=== PATIENT | female | born 1980 | race African-American/Black ===

== ENCOUNTER 2017-07-27 07:46 | Emergency (ER) | payer MEDICAID ==
[~2017-07-27] VITALS: Ht 154.9 cm; Wt 61.2 kg
[2017-07-27] MEDS ORDERED: Sodium Chloride 500ML 500 ML IV ONE (07:53)
[2017-07-27] MEDS ORDERED: Morphine Sulfate 4mg/ml Inj IVP ONE (08:00)
[2017-07-27] MEDS ORDERED: Ketorolac 30mg Inj IV ONE (08:00)
[2017-07-27 08:36] LABS: BASOPHILS % (AUTO) 1.1 % (0.0-2.0); EOSINOPHILS % (AUTO) 7.7 % (0.0-3.0); HEMATOCRIT 29.8 % (37.0-47.0); HEMOGLOBIN 9.2 G/DL (12.0-16.0); LYMPHOCYTES % (AUTO) 30.4 % (20.0-45.0); MEAN CORPUSCULAR VOLUME 74 FL (80-99); MONOCYTES % (AUTO) 4.5 % (1.0-10.0); NEUTROPHILS % (AUTO) 56.3 % (45.0-75.0); PLATELET COUNT 273 K/UL (150-450); RED BLOOD COUNT 4.05 M/UL (4.20-5.40); RED CELL DISTRIBUTION WIDTH 15.2 % (11.6-14.8); WHITE BLOOD COUNT 7.4 K/UL (4.8-10.8)
[2017-07-27 08:43] LABS: ANION GAP 7 mmol/L (5-15); BLOOD UREA NITROGEN 11 mg/dL (7-18); CARBON DIOXIDE 27 MMOL/L (21-32); CHLORIDE 107 MMOL/L (98-107); CREATININE 0.9 MG/DL (0.55-1.30); POTASSIUM 4.3 MMOL/L (3.5-5.1); SODIUM 141 MMOL/L (136-145)
[2017-07-27 08:58] LABS: ALANINE AMINOTRANSFERASE 14 U/L (12-78); ALBUMIN 3.6 G/DL (3.4-5.0); ALBUMIN/GLOBULIN RATIO 0.9 (1.0-2.7); ALKALINE PHOSPHATASE 85 U/L (46-116); ASPARTATE AMINO TRANSFERASE 14 U/L (15-37); BILIRUBIN,TOTAL 0.2 MG/DL (0.2-1.0); CKMB < 0.5 NG/ML (0.0-3.6); CREATINE KINASE 89 U/L (26-308)
[2017-07-27 09:02] LABS: APPEARANCE,URINE SLIGHTLY CLOUDY; BILIRUBIN, URINE NEGATIVE (NEGATIVE); COLOR,URINE PALE YELLOW; GLUCOSE, URINE (UA) NEGATIVE (NEGATIVE); KETONES,URINE NEGATIVE (NEGATIVE); LEUKOCYTE ESTERASE ,URINE NEGATIVE (NEGATIVE); NITRITE,URINE NEGATIVE (NEGATIVE); PH,URINE 6 (4.5-8.0); PROTEIN,URINE NEGATIVE (NEGATIVE); UROBILINOGEN,URINE NORMAL MG/DL (0.0-1.0)
--- NOTE | 2017-07-27 09:29 | Emergency Room Report ---
History of Present Illness General Chief Complaint: Back Pain-No Injury Source: Patient Present Illness HPI Patient presents with complaints of pain to the right rhomboid area medial to the scapula and just lateral to the spine on the right side patient reports waking up to the pain this morning there is a pleuritic component to it however also significant musculoskeletal component denies any headache denies any neck pain she felt that the pain was also coming around to the mid chest area Denies any vomiting or diarrhea denies any focal weakness Allergies: Coded Allergies: No Known Allergies (Unverified , 07/27/17) Patient History Past Medical History: see triage record Pertinent Family History: none Last Menstrual Period: july 06, 2017 Now: No Reviewed Nursing Documentation: PMH: Agreed; PSxH: Agreed Nursing Documentation-PMH Past Medical History: No History, Except For Hx Asthma: Yes Review of Systems All Other Systems: negative except mentioned in HPI Physical Exam Vital Signs Date Time Temp Pulse Resp B/P (MAP) Pulse Ox O2 Delivery O2 Flow Rate FiO2 07/27/17 07:36 98.1 58 16 128/79 100 Room Air 98.1 Sp02 EP Interpretation: reviewed, normal General Appearance: well appearing, no apparent distress Head: normocephalic, atraumatic Eyes: bilateral eye PERRL, bilateral eye EOMI ENT: hearing grossly normal, normal pharynx, TMs + canals normal, uvula midline Neck: full range of motion, supple, no meningismus, no bony tend Respiratory: lungs clear, normal breath sounds, no rhonchi, no respiratory distress, no retraction, no accessory muscle use Cardiovascular #1: normal peripheral pulses, regular rate, rhythm, no edema, no gallop, no JVD, no murmur, other - Patient has significant discomfort to the right mid rhomboid region no obvious midline step-off Gastrointestinal: normal bowel sounds, non tender, soft, no mass, no organomegaly, non-distended, no guarding, no hernia, no pulsatile mass, no rebound Genitourinary: no CVA tenderness Musculoskeletal: other - As above with tenderness in the right rhomboid region , patient also has pain when she moves and rotates her shoulder causing pain in that area Neurologic: oriented x3, responsive, mold maker helper III-XII nml as tested, motor strength/ tone normal, sensory intact Psychiatric: mood/affect normal Skin: normal color, no rash, warm/dry, palpation normal Lymphatic: normal inspection, no adenopathy Medical Decision Making Diagnostic Impression: Primary Impression: Back pain Additional Impressions: Pleurisy Drug abuse ER Course Multiple differentials considered Musculoskeletal cardiac pulmonary pathology Given the patient's pleuritic component initial d-dimer was obtained and this was elevated and therefore CT imaging was followed No signs of any obvious pulmonary embolism Patient's drug screen also shows multiple drug ingestion including cocaine On reevaluation patient continued to do well at this time is stable for close outpatient follow-up ,, Labs Test 07/27/17 08:11 07/27/17 08:49 White Blood Count 7.4 K/UL (4.8-10.8) Red Blood Count 4.05 M/UL (4.20-5.40) Hemoglobin 9.2 G/DL (12.0-16.0) Hematocrit 29.8 % (37.0-47.0) Mean Corpuscular Volume 74 FL (80-99) Mean Corpuscular Hemoglobin 22.7 PG (27.0-31.0) Mean Corpuscular Hemoglobin Concent 30.8 G/DL (32.0-36.0) Red Cell Distribution Width 15.2 % (11.6-14.8) Platelet Count 273 K/UL (150-450) Mean Platelet Volume 9.6 FL (6.5-10.1) Neutrophils (%) (Auto) 56.3 % (45.0-75.0) Lymphocytes (%) (Auto) 30.4 % (20.0-45.0) Monocytes (%) (Auto) 4.5 % (1.0-10.0) Eosinophils (%) (Auto) 7.7 % (0.0-3.0) Basophils (%) (Auto) 1.1 % (0.0-2.0) D-Dimer 0.60 mg/L FEU (0.00-0.49) Sodium Level 141 MMOL/L (136-145) Potassium Level 4.3 MMOL/L (3.5-5.1) Chloride Level 107 MMOL/L (98-107) Carbon Dioxide Level 27 MMOL/L (21-32) Anion Gap 7 mmol/L (5-15) Blood Urea Nitrogen 11 mg/dL (7-18) Creatinine 0.9 MG/DL (0.55-1.30) Estimat Glomerular Filtration Rate > 60 mL/min (>60) Glucose Level 104 MG/DL (74-106) Calcium Level 9.0 MG/DL (8.5-10.1) Total Bilirubin 0.2 MG/DL (0.2-1.0) Aspartate Amino Transf (AST/SGOT) 14 U/L (15-37) Alanine Aminotransferase (ALT/SGPT) 14 U/L (12-78) Alkaline Phosphatase 85 U/L (46-116) Total Creatine Kinase 89 U/L (26-308) Creatine Kinase MB < 0.5 NG/ML (0.0-3.6) Creatine Kinase MB Relative Index Troponin I 0.000 ng/mL (0.000-0.056) Total Protein 7.7 G/DL (6.4-8.2) Albumin 3.6 G/DL (3.4-5.0) Globulin 4.1 g/dL Albumin/Globulin Ratio 0.9 (1.0-2.7) Lipase 167 U/L (73-393) Urine Color Pale yellow Urine Appearance Slightly cloudy Urine pH 6 (4.5-8.0) Urine Specific [place] 1.015 (1.005-1.035) Urine Protein Negative (NEGATIVE) Urine Glucose (UA) Negative (NEGATIVE) Urine Ketones Negative (NEGATIVE) Urine Occult Blood Negative (NEGATIVE) Urine Nitrite Negative (NEGATIVE) Urine Bilirubin Negative (NEGATIVE) Urine Urobilinogen Normal MG/DL (0.0-1.0) Urine Leukocyte Esterase Negative (NEGATIVE) Urine RBC 0-2 /HPF (0 - 2) Urine WBC 2-4 /HPF (0 - 2) Urine Squamous Epithelial Cells Many /LPF (NONE/OCC) Urine Amorphous Sediment Few /LPF (NONE) Urine Bacteria Few /HPF (NONE) Urine HCG, Qualitative Negative (NEGATIVE) Urine Opiates Screen Positive (NEGATIVE) Urine Barbiturates Screen Negative (NEGATIVE) Phencyclidine (PCP) Screen Negative (NEGATIVE) Urine Amphetamines Screen Negative (NEGATIVE) Urine Benzodiazepines Screen Negative (NEGATIVE) Urine Cocaine Screen Positive (NEGATIVE) Urine Marijuana (THC) Screen Positive (NEGATIVE) EKG Diagnostic Results Rate: normal Rhythm: NSR ST Segments: no acute changes Rhythm Strip Diag. Results EP Interpretation: yes Rate: 77 Rhythm: NSR, no PVC's, no ectopy Chest X-Ray Diagnostic Results Chest X-Ray Diagnostic Results : Chest X-Ray Ordered: Yes # of Views/Limited/Complete: 1 View Indication: Chest Pain EP Interpretation: Yes Interpretation: no consolidation, no effusion, no pneumothorax, no acute cardiopulmonary disease Impression: No acute disease Electronically Signed by: Jesus Alberto Rivero DO CT/MRI/US Diagnostic Results CT/MRI/US Diagnostic Results : Impression CT chestFindings: There is image degradation due to respiratory motion artifact. No definite intraluminal filling defects or other findings to suggest acute pulmonary embolus are demonstrated. Normal caliber pulmonary arteries. No evidence of right ventricular dilatation. The heart is mildly enlarged. No evidence of thoracic aortic aneurysm or dissection. The lungs demonstrate some groundglass opacity, particularly in the posterior upper lobes. This may to some extent the due to respiratory motion artifact may also represent mild pulmonary edema Linear opacities at both lung bases representing either scarring or atelectasis. No dense consolidation, masses, nodules, or effusions are demonstrated. No mediastinal or hilar mass or adenopathy. No pericardial effusion. No axillary or chest wall mass or adenopathy. Visualized portions of the thyroid are unremarkable. Esophagus is unremarkable. The included upper abdominal anatomy is unremarkable. Impression: No definite evidence of acute pulmonary embolus. Note, however, that motion artifact at the lung bases makes peripheral pulmonary and was difficult to confidently excluded. Mild cardiomegaly Scattered areas of groundglass opacity may reflect areas of mild pulmonary edema Bilateral basilar atelectasis versus scarring Last Vital Signs Date Time Temp Pulse Resp B/P (MAP) Pulse Ox O2 Delivery O2 Flow Rate FiO2 07/27/17 07:36 98.1 58 16 128/79 100 Room Air 98.1 Status: improved Disposition: HOME, SELF-CARE Condition: Improved Scripts Ibuprofen* (MOTRIN*) 600 Mg Tablet 600 MG ORAL Q8H PRN for For Pain, #30 TAB 0 Refills Prov: Jesus Alberto Rivero DO 07/27/17 [facility],REFERRING (PCP) Additional Instructions: Patient is provided with the discharge instructions notified to follow up with primary doctor in the next 2-3 days otherwise return to the er with any worsening symptoms. Please note that this report is being documented using [employer] technology. This can lead to erroneous entry secondary to incorrect interpretation by the dictating instrument. Jesus Alberto Rivero DO Jul 27, 2017 09:29
--- NOTE | 2017-07-27 10:18 | Diagnostic Imaging Report ---
Indication: Chest pain Technique: One view of the chest Comparison: none Findings: Lungs and pleural spaces are clear. Heart size is normal Impression: No acute process
[2017-07-27 10:29] VITALS: BP 122/79
[2017-07-27] MEDS ORDERED: IBUPROFEN600 MG ORAL (10:39)
--- NOTE | 2017-07-27 10:47 | Diagnostic Imaging Report ---
ndication: Chest pain Technique: IV administration nonionic contrast. Spiral acquisitions obtained from the lung bases to the lung apices. Multiplanar and 3-D reconstructions were generated. Total dose length product 614.11 mGycm. CTDIvol(s) 21.41 mGy. Dose reduction achieved using automated exposure control Comparison: none Findings: There is image degradation due to respiratory motion artifact. No definite intraluminal filling defects or other findings to suggest acute pulmonary embolus are demonstrated. Normal caliber pulmonary arteries. No evidence of right ventricular dilatation. The heart is mildly enlarged. No evidence of thoracic aortic aneurysm or dissection. The lungs demonstrate some groundglass opacity, particularly in the posterior upper lobes. This may to some extent the due to respiratory motion artifact may also represent mild pulmonary edema Linear opacities at both lung bases representing either scarring or atelectasis. No dense consolidation, masses, nodules, or effusions are demonstrated. No mediastinal or hilar mass or adenopathy. No pericardial effusion. No axillary or chest wall mass or adenopathy. Visualized portions of the thyroid are unremarkable. Esophagus is unremarkable. The included upper abdominal anatomy is unremarkable. Impression: No definite evidence of acute pulmonary embolus. Note, however, that motion artifact at the lung bases makes peripheral pulmonary and was difficult to confidently excluded. Mild cardiomegaly Scattered areas of groundglass opacity may reflect areas of mild pulmonary edema Bilateral basilar atelectasis versus scarring The CT scanner at [facility] [place] is accredited by the [employer] and the scans are performed using protocols designed to limit radiation exposure to as low as reasonably achievable to attain images of sufficient resolution adequate for diagnostic evaluation.
[2017-07-27 11:35] VITALS: BP 119/65
== END 2017-07-27 11:35 | disposition home or self-care (01) ==
LOC: EDBD 07:46 → EMR 08:02
DX: M54.9 Dorsalgia, unspecified (principal); R09.1 Pleurisy; F19.10 Other psychoactive substance abuse, uncomplicated; J45.909 Unspecified asthma, uncomplicated
CPT/HCPCS: 36415; 71045; 71275; 80053; 80307; 81003; 81025; 82550; 82553; 83690; 84484; 85025; 85379; 93005; 96361; 96374; 96375; 99284; J1885; J2270; J2405; J7040; Q9967